=== PATIENT | female | born 1935 | race African-American/Black ===

== ENCOUNTER 2021-02-05 18:08 | Emergency (ER) | payer OTHER ==
[~2021-02-05] VITALS: Ht 167.6 cm; Wt 110.2 kg
[~2021-02-05 18:08] MED LIST: ACETAMINOPHEN-1 EAC1 PO; ASPIRIN EC81 M1 PO; B-100 COMPLEX1 EAC1 PO; CENTRUM SILVER1 EAC4 PO; GLUCOPHAGE500 MG PO; IRON325; LOSARTAN-HCTZ1 EAC1 PO; OMEGA-31000 M1; PRAVACHOL40 MG; TOVIAZ4 M1 PO; TRIAMCINOLONE A15 G1 TP
[2021-02-05 18:45] LABS: ABSOLUTE NEUTROPHILS 8.3 thou/uL (1.4-8.2); BASOPHILS 0.2 % (0.0-2.0); EOSINOPHILS 0.2 % (0.0-3.0); HEMATOCRIT 27.5 % (37.0-47.0); HEMOGLOBIN 9.1 gm/dL (12.0-15.0); LYMPHOCYTES 7.9 % (24.0-44.0); MCH 30.4 pg (26.0-34.0); MCHC 33.3 g/dL (28.0-37.0); MCV 91.4 fL (80.0-100.0); MONOCYTES 8.9 % (1.0-8.0); PLATELET COUNT 155 thou/uL (150-400); POLYS 82.8 % (36.0-66.0); RDW 15.7 % (10.5-14.5)
[2021-02-05 18:53] LABS: CREATININE 1.7 mg/dL (0.6-1.0)
[2021-02-05 21:15] VITALS: BP 172/63
[2021-02-05] MEDS ORDERED: ZOFRAN ODT4 MG PO (21:18)
--- NOTE | 2021-02-06 10:57 | EKG ---
[address] [place] [address] ELECTROCARDIOGRAM REPORT Name: TITO REICH [id number] Admission: 02/05/21 Attend Phys: Discharge: 02/05/21 Date of : 33 Report #: [id number] [facility] ED Test Date: 2021-02-05 Test Time: 19:02:37 Pat Name: TITO REICH Department: Room: Gender: F Record Changer: : 1935 Requested By: Faraz Martinez Order Number: [id number] MD: Hasmukh Nina Measurements Intervals [place] Rate: 60 P: AK: 173 QRS: -42 QRSD: 128 T: 56 QT: 519 QTc: 519 Interpretive Statements Sinus rhythm with first-degree AV block Nonspecific IVCD with LAD Compared to ECG 04/06/2012 16:07:38 Premature ventricular complexes are no longer present Electronically Signed On 02-06-2021 10:57:12 [employer] by Hasmukh Nina [email or web address] <ELECTRONICALLY SIGNED> By: Hasmukh Nina MD, [facility] 02/06/21 1057 190 01 Hasmukh Nina MD, FACC /EPI
== END 2021-02-05 21:15 | disposition home or self-care (01) ==
LOC: ER 18:08
PROVIDERS: Student in an Organized Health Care Education/Training Program
DX: S00.03XA Contusion of scalp, initial encounter (principal); I10 Essential (primary) hypertension; Z79.84 Long term (current) use of oral hypoglycemic drugs; Z79.82 Long term (current) use of aspirin; Z79.899 Other long term (current) drug therapy; Z88.2 Allergy status to sulfonamides; W10.9XXA Fall (on) (from) unspecified stairs and steps, initial encounter; Y93.89 Activity, other specified; Y92.89 Other specified places as the place of occurrence of the external cause; Y99.8 Other external cause status